=== PATIENT | female | born 1945 | race African-American/Black ===

== ENCOUNTER 2018-11-02 20:22 | Emergency (ER) | payer SELFPAY ==
[~2018-11-02] VITALS: Ht 165.1 cm; Wt 66.0 kg
[2018-11-02 23:07] VITALS: BP 144/60
== END 2018-11-02 23:09 | disposition home or self-care (01) ==
LOC: ER 20:22
DX: S30.1XXA Contusion of abdominal wall, initial encounter (principal); I10 Essential (primary) hypertension; I25.2 Old myocardial infarction; W01.0XXA Fall on same level from slipping, tripping and stumbling without subsequent striking against object, initial encounter; Y93.89 Activity, other specified; Y92.89 Other specified places as the place of occurrence of the external cause; Y99.8 Other external cause status
CPT/HCPCS: 99283